=== PATIENT | female | born 1985 | race Native Hawaiian/Other Pacific Islander ===

== ENCOUNTER 2017-08-15 20:52 | Emergency (ER) | payer OTHER ==
[~2017-08-15 20:52] MED LIST: NAPR550 PO; PERI8.6T PO; PREN0.01 PO
[2017-08-15 20:54] VITALS: BP 143/81; RESP 16; TEMP 98.7; O2SAT 100
[2017-08-15] MEDS ORDERED: ROBA500T PO (21:59)
[2017-08-15] MEDS ORDERED: DICL75TA PO (21:59)
--- NOTE | 2017-08-15 22:04 | PD ---
HPI Chief Complaint: Pain: Acute or Chronic Time Seen by Provider: 21:29 Travel History International Travel<30 days: No Contact w/Intl Traveler<30days: No Traveled to known affect area: No History of Present Illness HPI 31-year-old [place] female presents to emergency Department with complaints of left-sided neck pain after sleeping at a friend's house 6 weeks ago. He states that she was seen at a walk-in clinic approximately 2-3 weeks ago. She was placed on diclofenac, Flexeril and a Medrol Dosepak. She states that the pain seemed to improve but then over the last few days it has exacerbated again after stopping her medicine. She states the pain is on the left side her neck down to her left trapezius and shoulder. Worse while at work some relief with taking time off. She denies any numbness or tingling. No focal weakness. No direct trauma. She is also trying acupuncture without relief. [facility] Past Medical History Narrative Medical This is neck spasm Medical History: Denies Significant Hx ?: Not Past Surgical History Tonsillectomy: Yes Social History Alcohol Use: No Tobacco Use: No Substance Use: No Allergies-Medications (Allergen,Severity, Reaction): Coded Allergies: No Known Allergies (Unverified , 06/21/15) Reported Meds & Prescriptions Reported Meds & Active Scripts Active Robaxin (Methocarbamol) 500 Mg Tab 1,000 Mg PO TID [address] (Diclofenac Sodium) 75 Mg Tabdr 75 Mg PO BID Anaprox Ds (Naproxen Sodium) 550 Mg Tab 550 Mg PO BID PRN Jessi-Colace 8.6-50 mg (Sennosides-Docusate Sodium) 1 Tab Tab 1 Tab PO BID TAKE 1 TABLET TWICE DAILY FOR 3 DAYS THEN NEEDED FOR CONSTIPATION Vit ( Plus) (Prenat Multivit/Relay Assembler/Iron/Folic Ac) Tab 1 Tab PO DAILY Review of Systems General / Constitutional: No: Fever Eyes: No: Visual changes HENT: Positive: Neck Stiffness, Neck Pain, No: Headaches Cardiovascular: No: Chest Pain or Discomfort Respiratory: No: Shortness of Breath Gastrointestinal: No: Abdominal Pain Genitourinary: No: Dysuria Musculoskeletal: Positive: Limited ROM (the neck), Cramping, Pain Skin: No Rash Neurologic: No: Weakness Psychiatric: No: Depression Endocrine: No: Polydipsia Hematologic/Lymphatic: No: Easy Bruising Physical Exam Narrative GENERAL: Well-developed, well-nourished in no acute distress. Nontoxic appearing. HEAD: Normocephalic, atraumatic. EYES: Pupils equal round and reactive. Extraocular motions intact. No scleral icterus. No injection or drainage. ENT: TMs clear without erythema. The external auditory canals clear. Nose: clear . Posterior pharynx is pink and moist. No tonsillar edema or exudate. Uvula midline. Airway patent. NECK: Trachea midline.left paracervical and trapezius tenderness with spasm no central bony tenderness. CARDIOVASCULAR: Regular rate and rhythm without murmurs, gallops, or rubs. RESPIRATORY: Clear to auscultation. Breath sounds equal bilaterally. No wheezes , rales, or rhonchi. GASTROINTESTINAL: Abdomen soft, non-tender, nondistended. No hepato-splenomegaly , or palpable masses. No guarding. EXTREMITIES: No clubbing, cyanosis, or edema. No joint tenderness, effusion, or edema noted. BACK: Nontender without deformity or crepitance. No flank tenderness. Data Data Last Documented VS Vital Signs Date Time Temp Pulse Resp B/P (MAP) Pulse Ox O2 Delivery O2 Flow Rate FiO2 08/15/17 20:54 98.7 16 143/81 (101) 100 Room Air MDM Medical Decision Making Medical Screen Exam Complete: Yes Emergency Medical Condition: Yes Medical Record Reviewed: Yes Differential Diagnosis MDM: High Differential diagnoses: sprain, strain, HNP, neck spasms Narrative Course This is neck spasms neck spasms Diagnosis Primary Impression: Muscle spasms of neck Patient Instructions: General Instructions Additional Instructions: Rest. Heat to warm up the muscle and cold to cool it down. Massage therapy Robaxin and Voltaren. Follow-up with a primary care doctor in the next few days and consider physical therapy Return to the ER for emergencies. Med/Other Pt SpecificInfo: Prescription(s) given Scripts Methocarbamol (Robaxin) 500 Mg Tab 1000 MG PO TID for Muscle Spasm for 10 Days, TAB 0 Refills Prov: Demetria Cohen DO 08/15/[address] (Diclofenac Sodium DR) 75 Mg Tabdr 75 MG PO BID, #30 TAB 0 Refills Prov: Demetria Cohen DO 08/15/17 Disposition: 01 DISCHARGE HOME Condition: Stable Donell Fairbanks Aug 15, 2017 22:04
== END 2017-08-15 22:19 | disposition home or self-care (01) ==
LOC: NEPK 20:52
DX: M62.838 Other muscle spasm (principal)
CPT/HCPCS: 99284